=== PATIENT | male | born 1975 | race Caucasian/White ===

== ENCOUNTER 2018-04-19 08:17 | Emergency (ER) | payer SELFPAY ==
[2018-04-19 08:34] VITALS: BP 125/76; PULSE 84; TEMP 98.2; BMI 38.9
[2018-04-19] MEDS ORDERED: guaiFENesin/CODEINE 10 ML UNIT-DOSE CUPS PO ONE (09:01)
--- NOTE | 2018-04-19 09:01 | PDOC ---
History of Present Illness - General Chief Complaint: Respiratory Stated Complaint: COUGH, FEVER Time Seen by Provider: 04/19/18 08:55 History Source: Patient Exam Limitations: No Limitations - History of Present Illness Initial Comments: CHIEF COMPLAINT: 43 y/o afebrile male with PMH CVA (november 2017), HTN c/o cough and fever x 2 days. HISTORY OF PRESENT ILLNESS: The patient states the fever was 102 at home. He has been taking tylenol. He also has some nasal congestion. He denies earache , sore throat, n/v/d, CP, abd pain and all other symptoms. Patient is a non smoker Vital signs on arrival are within normal limits. REVIEW OF SYSTEMS: GENERAL/CONSTITUTIONAL: +fever. No weakness. No weight change. HEAD, EYES, EARS, NOSE AND THROAT: No change in vision. No ear pain or discharge. No sore throat. CARDIOVASCULAR: No chest pain or shortness of breath. RESPIRATORY: +cough. No wheezing or hemoptysis. GASTROINTESTINAL: No abd pain, nausea, vomiting, diarrhea. GENITOURINARY: No dysuria, frequency, or change in urination. MUSCULOSKELETAL: No joint or muscle swelling or pain. No neck or back pain. SKIN: No rash or easy bruising. NEUROLOGIC: No headache, vertigo, loss of consciousness, or loss of sensation. PHYSICAL EXAM: GENERAL: The patient is awake, alert, and fully oriented, in no acute distress. He has a persistent dry cough. HEAD: Normal with no signs of trauma. ENT: Pupils equal, round and reactive to light, extraocular movements intact, sclera anicteric, conjunctiva clear. Neck supple. LUNGS: Clear to auscultation bilaterally. Normal excursion. No respiratory distress or use of accessory muscles. CV: RRR, S1/S2, no MRG. Cap refill < 2 sec. ABDOMEN: Soft, non-distended, non-tender even to deep palpation, no hepatomegaly or splenomegaly, no masses. EXTREMITIES: Normal range of motion, no edema. NEUROLOGICAL: Normal speech, normal gait. CN II-XII grossly intact. SKIN: Warm, dry, normal turgor, no rashes or lesions noted. Past History - Past Medical History Allergies/Adverse Reactions: Allergies Allergy/AdvReac Type Severity Reaction Status Date / Time No Known Allergies Allergy Verified 04/19/18 08:30 Home Medications: Ambulatory Orders Azithromycin [Zithromax 250mg Tablets -] 250 mg PO UTDICT #6 tab 04/19/18 Guaifenesin AC [Robitussin AC] 5 ml PO TID #100 ml MDD 20 04/19/18 CVA: Yes COPD: No HTN: Yes - Immunization History Immunization Up to Date: Yes - Suicide/Smoking/Psychosocial Hx Smoking History: Never smoked *Physical Exam - Vital Signs Last Vital Signs Temp Pulse Resp BP Pulse Ox 98.2 F 84 18 125/76 97 04/19/18 08:31 04/19/18 08:31 04/19/18 08:31 04/19/18 08:31 04/19/18 08:31 Medical Decision Making - Medical Decision Making A/P: 43 y/o male with fever and cough x 2 days. O2 sat 97%. Will give robitussin AC and send for chest xray to r/o PNA. Chest xray IMPRESSION: No active pulmonary disease. Will treat for bronchitis with rx for zpack and robitussin AC. Instructed the patient to be careful with the robitussin as it causes drowsiness. Patient instructed to f/u with his doctor and return to the ER with any worsening or concerning symptoms The patient verbalizes understanding of all instructions, has no further questions and is awaiting discharge. *DC/Admit/Observation/Transfer Diagnosis at time of Disposition: Cough, Bronchitis - Discharge Dispostion Disposition: HOME Condition at time of disposition: Fair - Referrals - Patient Instructions Printed Discharge Instructions: DI for Acute Bronchitis Additional Instructions: Discharge Instructions: -You have bronchitis -2 prescriptions have been sent to your pharmacy; the cough medicine may cause drowsiness -Drink plenty of fluids -Follow up with your doctor within 1 week -Return to the ER with any worsening or concerning symptoms - Post Discharge Activity Forms/Work/School Notes: Back to Work
[2018-04-19] MEDS ORDERED: guaiFENesin/CODEINE 5 ML UNIT-DOSE CUPS PO ONE (09:27)
== END 2018-04-19 10:09 | disposition home or self-care (01) ==
LOC: JERFT 08:17
DX: R09.81 Nasal congestion (principal); J40 Bronchitis, not specified as acute or chronic; R05 Cough; I10 Essential (primary) hypertension; Z86.73 Personal history of transient ischemic attack (TIA), and cerebral infarction without residual deficits
CPT/HCPCS: 71046-TC-FY; 99281-25

== ENCOUNTER 2018-10-02 11:55 | Emergency (ER) | payer BC, OTHER ==
[2018-10-02 11:59] VITALS: BP 105/62; PULSE 95; TEMP 97.9; BMI 39.5
--- NOTE | 2018-10-02 12:51 | PDOC ---
History of Present Illness - General Chief Complaint: Cold Symptoms Stated Complaint: SHORTNESS OF BREATH Time Seen by Provider: 10/02/18 12:38 - History of Present Illness Initial Comments: 10/02/18 12:49 43-year-old male presents for evaluation of cough and facial and nasal congestion 3 weeks past medical history significant for hypertension he has no systemic symptoms. Past History - Past Medical History Allergies/Adverse Reactions: Allergies Allergy/AdvReac Type Severity Reaction Status Date / Time No Known Allergies Allergy Verified 10/02/18 11:59 Home Medications: Ambulatory Orders Azithromycin [Zithromax 250mg Tablets -] 250 mg PO UTDICT #6 tab 04/19/18 Guaifenesin AC [Robitussin AC] 5 ml PO TID #100 ml MDD 20 04/19/18 Amox-Tr/K Cl [Augmentin - 875Mg Tablet] 1 tab PO BID #20 tablet 10/02/18 Budesonide [Rhinocort Allergy] 1 spray NS ONCE #1 spray.pump 10/02/18 CVA: Yes COPD: No HTN: Yes - Immunization History Immunization Up to Date: Yes - Suicide/Smoking/Psychosocial Hx Smoking History: Never smoked Information on smoking cessation initiated: No Hx Alcohol Use: No Drug/Substance Use Hx: No Substance Use Type: None Review of Systems - Review of Systems Constitutional: Yes: Malaise. No: Chills, Diaphoresis, Fever, Night Sweats HEENTM: Yes: Nose Congestion Respiratory: Yes: Cough *Physical Exam - Vital Signs Last Vital Signs Temp Pulse Resp BP Pulse Ox 97.9 F 95 H 18 105/62 98 10/02/18 11:58 10/02/18 11:58 10/02/18 11:58 10/02/18 11:58 10/02/18 11:58 - Physical Exam Comments: HEAD: NC/AT EYES: Conjuntiva clear Ears: Canals and TM's normal NOSE: No d/c, turbinates injected THROAT: Moist mucous membrances, oral pharanx clear, uvula midline NECK: Supple without adenopathy CARDIAC: S1 S2 LUNGS: CTA Full and Equal breath sounds ABDOMEN: Soft NT ND MS: Full ROM in all joints without edema NEUROLOGIC: No gross sensory or motor deficits, NVID SKIN: Normal color and temperature no lesions or rashes 10/02/18 12:49 *DC/Admit/Observation/Transfer Diagnosis at time of Disposition: Sinusitis - Discharge Dispostion Disposition: HOME - Prescriptions Prescriptions: Amox-Tr/K Cl [Augmentin - 875Mg Tablet] 1 tab PO BID #20 tablet Budesonide [Rhinocort Allergy] 1 spray NS ONCE #1 spray.pump - Referrals Referrals: Baron Basurto MD [Staff Physician] - - Patient Instructions Printed Discharge Instructions: Sinusitis, DI for Sinusitis Additional Instructions: Return to the emergency room should symptoms worsen or go unresolved. Please take the antibiotics as directed and finish the entire course. Using a nasal spray which will help her symptoms as well. Follow-up with your nose and throat doctor in 2-3 days for further evaluation and treatment options. - Post Discharge Activity
== END 2018-10-02 12:57 | disposition home or self-care (01) ==
LOC: JERFT 11:55
DX: J32.9 Chronic sinusitis, unspecified (principal); I10 Essential (primary) hypertension
CPT/HCPCS: 99281-25

== ENCOUNTER 2018-11-18 00:29 | Emergency (ER) | payer BC, OTHER ==
[2018-11-18 00:53] VITALS: BP 137/94; PULSE 95; TEMP 97.5; BMI 33.9
[2018-11-18] MEDS ORDERED: DEXAMETHASONE SOD PHOSPHATE 10 MG/1 ML VIAL IM ONE (01:50)
[2018-11-18] MEDS ORDERED: LORATADINE 10 MG TABLET PO ONE (01:50)
[2018-11-18] MEDS ORDERED: ALBUTEROL SO4 2.5/IPRATROPIUM 0.5 INH SOL 3 ML VIAL.NEB. NEB PRN (01:50)
--- NOTE | 2018-11-18 01:55 | PDOC ---
History of Present Illness - General Chief Complaint: Cold Symptoms Stated Complaint: COLD/CONGESTION History Source: Patient Exam Limitations: No Limitations - History of Present Illness Initial Comments: 11/18/18 01:55 Patient is a 43 year old male with h/o HTN on lisinopril c/o cough x 4 days now having some wheezing, and tightness in his chesht x 2 days. Initally has a sorethorat which is now better Cough is nonproductive and has used tylenol, and his son's albuterol nebs without relief. (+) nasal congestion, runny nose. No fever, no chills. Has had similar episodes in the past where he has to come to the ED for treatment. No h/o asthma. PMD: Nicko PMHX: as above PSOCHX: neg cig, neg drug, neg etoh ALL: NKDA GENERAL/CONSTITUTIONAL: [No fever or chills. No weakness. No weight change.] HEAD, EYES, EARS, NOSE AND THROAT: [No change in vision. No ear pain or discharge. No sore throat.] CARDIOVASCULAR: [No chest pain or shortness of breath.] RESPIRATORY: (+) cough, wheezing, (-) hemoptysis.] GASTROINTESTINAL: [No nausea, vomiting, diarrhea or constipation. No rectal bleeding.] GENITOURINARY: [No dysuria, frequency, or change in urination.] MUSCULOSKELETAL: [No joint or muscle swelling or pain. No neck or back pain.] SKIN AND BREASTS: [No rash or easy bruising.] NEUROLOGIC: [No headache, vertigo, loss of consciousness, or loss of sensation.] PSYCHIATRIC: [No depression or anxiety.] ENDOCRINE: [No increased thirst. No abnormal weight change.] HEMATOLOGIC/LYMPHATIC: [No anemia, easy bleeding, or history of blood clots.] ALLERGIC/IMMUNOLOGIC: [No hives or skin allergy. No latex allergy.] GENERAL: [The patient is awake, alert, and fully oriented, in no acute distress. ] HEAD: [Normal with no signs of trauma.] EYES: [Pupils equal, round and reactive to light, extraocular movements intact, sclera anicteric, conjunctiva clear.] ENT: [Ears normal, nares patent, oropharynx clear without exudates. Moist mucous membranes.] NECK: [Normal range of motion, supple without lymphadenopathy, JVD, or masses.] LUNGS: [Breath sounds equal, clear to auscultation bilaterally. mild wheezes, and no crackles.] HEART: [Regular rate and rhythm, normal S1 and S2 without murmur, rub.] ABDOMEN: [Soft, nontender, normoactive bowel sounds. No guarding, no rebound. No masses.] EXTREMITIES: [Normal range of motion, no edema. No clubbing or cyanosis. No cords, erythema, or tenderness.] NEUROLOGICAL: [Cranial nerves II through XII grossly intact. Normal speech, normal gait.] PSYCH: [Normal mood, normal affect.] SKIN: [Warm, Dry, normal turgor, no rashes or lesions noted.] Past History - Past Medical History Allergies/Adverse Reactions: Allergies Allergy/AdvReac Type Severity Reaction Status Date / Time No Known Allergies Allergy Verified 11/18/18 00:52 Home Medications: Ambulatory Orders Azithromycin [Zithromax 250mg Tablets -] 250 mg PO UTDICT #6 tab 04/19/18 Guaifenesin AC [Robitussin AC] 5 ml PO TID #100 ml MDD 20 04/19/18 Amox-Tr/K Cl [Augmentin - 875Mg Tablet] 1 tab PO BID #20 tablet 10/02/18 Budesonide [Rhinocort Allergy] 1 spray NS ONCE #1 spray.pump 10/02/18 CVA: Yes COPD: No HTN: Yes - Immunization History Immunization Up to Date: Yes - Suicide/Smoking/Psychosocial Hx Smoking History: Never smoked Have you smoked in the past 12 months: No Information on smoking cessation initiated: No Hx Alcohol Use: No Drug/Substance Use Hx: No Substance Use Type: None *Physical Exam - Vital Signs Last Vital Signs Temp Pulse Resp BP Pulse Ox 97.5 F L 95 H 18 137/94 97 11/18/18 00:50 11/18/18 00:50 11/18/18 00:50 11/18/18 00:50 11/18/18 00:50 Moderate Sedation - Procedure Monitoring Vital Signs: Procedure Monitoring Vital Signs Temperature 97.5 F L 11/18/18 00:50 Pulse Rate 95 H 11/18/18 00:50 Respiratory Rate 18 11/18/18 00:50 Blood Pressure 137/94 11/18/18 00:50 O2 Sat by Pulse Oximetry (%) 97 11/18/18 00:50 Medical Decision Making - Medical Decision Making 11/18/18 01:55 Patient is a 43 year old male with h/o HTN on lisinopril c/o cough x 4 days now having some wheezing, and tightness in his chesht x 2 days. Initally has a sorethorat which is now better Cough is nonproductive and has used tylenol, and his son's albuterol nebs without relief. (+) nasal congestion, runny nose. No fever, no chills consistent with URI/bronchitis. nebs, decadron, cxr r/o pneumonia cxr neg I discussed the physical exam findings, ancillary test results and final diagnoses with the patient. I answered all of the patient's questions. The patient was satisfied with the care received and felt comfortable with the discharge plan and treatment plan. The Patient agrees to follow up with the primary care physician within 24-72 hours. *DC/Admit/Observation/Transfer Diagnosis at time of Disposition: Bronchitis - Discharge Dispostion Disposition: HOME Condition at time of disposition: Stable - Referrals - Patient Instructions Printed Discharge Instructions: DI for Acute Bronchitis Additional Instructions: Your Discharge Instructions: You must call primary care physician within 24 hours to arrange follow-up. Return to the Emergency Department with any new, persistent or worsening symptoms, for fever, chills, SOB, dizziness or any other concerning changes that may occur. - Post Discharge Activity
[2018-11-18] MEDS ORDERED: ALBUTEROL SO4 2.5/IPRATROPIUM 0.5 INH SOL 3 ML VIAL.NEB. NEB ONE (02:01)
[2018-11-18] MEDS ORDERED: LORATADINE 10 MG TABLET ONE (02:01)
[2018-11-18] MEDS ORDERED: DEXAMETHASONE SOD PHOSPHATE 4 MG/1 ML VIAL ONE (02:02)
== END 2018-11-18 03:08 | disposition home or self-care (01) ==
LOC: JER 00:29
PROC: 3E0F7GC Introduction of Other Therapeutic Substance into Respiratory Tract, Via Natural or Artificial Opening (ICD-10-PCS; principal; 2018-11-18)
PROC: 3E0233Z Introduction of Anti-inflammatory into Muscle, Percutaneous Approach (ICD-10-PCS; 2018-11-18)
DX: J40 Bronchitis, not specified as acute or chronic (principal); I10 Essential (primary) hypertension
CPT/HCPCS: 71046-TC-FY; 99281-25; J1100

== ENCOUNTER 2019-10-02 08:11 | Emergency (ER) | payer BC, OTHER ==
[2019-10-02 08:18] VITALS: TEMP 97.4; BMI 40.4
--- NOTE | 2019-10-02 09:17 | PDOC ---
History of Present Illness - General Chief Complaint: Headache Stated Complaint: HIGH BLOOD PRESSURE Time Seen by Provider: 10/02/19 08:47 - History of Present Illness Initial Comments: 10/02/19 09:32 Pt is a 44 y/o M with a significant past medical history of Stroke(~1 year ago [facility]), HTN who presents to our emergency Department due to headache. Pt endorses that he developed a headache a few days ago. Pt describes headache as 2/10 in pain severity, intermittent, and achy in nature. Cannot endorse any precipitating factors. Pt has not tried any remedies. Furthermore, pt endorses he experienced an episode of palpations yesterday evening. Endorses this is the first time he has experienced this. Additionally, pt states he has been experiencing a burning sensation on his right eye for 1 day duration. States he wears contacts but denies any trauma. PMH as above SocialHx- Denies Alcohol or Tobacco use SurgHx- Left shoulder and Wrist surgery [place] NKDA Past History - Past Medical History Allergies/Adverse Reactions: Allergies Allergy/AdvReac Type Severity Reaction Status Date / Time No Known Allergies Allergy Verified 10/02/19 08:18 Home Medications: Ambulatory Orders Budesonide [Rhinocort Allergy] 1 spray NS ONCE #1 spray.pump 10/02/18 Albuterol 0.083% Nebulizer Arianna [Ventolin 0.083% Nebulizer Soln -] 1 neb NEB Q4H #24 vial 11/18/18 Aspirin Coated [Ecotrin -] 81 mg PO DAILY 10/02/19 Lisinopril/Hydrochlorothiazide [Lisinopril-Hctz 20-12.5 mg Tab] 1 each PO DAILY 10/02/19 Montelukast Na [Singulair -] 10 mg PO HS 10/02/19 Tobramycin 0.3% Ophth Soln [Tobrex Ophthalmic Solution -] 1 drop OD Q4H #1 drops 10/02/19 Asthma: Yes CVA: Yes COPD: No HTN: Yes - Immunization History Immunization Up to Date: Yes - Psycho Social/Smoking Cessation Hx Smoking History: Never smoked Have you smoked in the past 12 months: No Hx Alcohol Use: No Drug/Substance Use Hx: No Substance Use Type: None Review of Systems - Review of Systems Able to Perform ROS?: Yes Is the patient limited Sami proficient: No Constitutional: No: Fever HEENTM: Yes: Blurred Vision, Tearing. No: Eye Pain Respiratory: No: Cough, Shortness of Breath Cardiac (ROS): Yes: Palpitations. No: Chest Pain ABD/GI: No: Constipated, Diarrhea : No: Dysuria, Hematuria Neurological: Yes: Headache. No: Numbness, Paresthesia, Ataxia *Physical Exam - Vital Signs Last Vital Signs Temp Pulse Resp BP Pulse Ox 97.4 F L 68 16 149/82 98 10/02/19 08:14 10/02/19 08:14 10/02/19 08:14 10/02/19 08:14 10/02/19 08:14 - Physical Exam General Appearance: Yes: Appropriately Dressed HEENT: positive: EOMI, Other (Right conjunctiva erythematous. Tearing from right eye. ) Neck: positive: Supple Respiratory/Chest: positive: Lungs Clear, Normal Breath Sounds Cardiovascular: positive: Regular Rate, S1, S2 Gastrointestinal/Abdominal: positive: Soft. negative: Guarding, Rebound Extremity: positive: Normal Inspection, Normal Range of Motion Neurologic: positive: breakdown man II-XII NML intact, Fully Oriented, Alert, Normal Mood/ Affect, Motor Strength 5/5 Heart Score/ECG Review - ECG Impressions Comment:: 10/02/19 09:46 nl sinus rhythm, nl intervals. QTc 430. 71 BPM. ED Treatment Course - LABORATORY CBC & Chemistry Diagram: 10/02/19 09:45 10/02/19 09:45 Medical Decision Making - Medical Decision Making DDX includes but not limited to Subdural bleed, subarachnoid hemorrhage, URI Will order CBC w/ diff, CMP, Cardiac Profile, Head CT in light of stroke history. Will also perform Fluorescein test (Lilia) to assess for any corneal abrasion or trauma in light of erythematous conjunctiva. -Pt given 1000 mg Tylenol for analgesia. -Fluorescein test performed. No evidence of corneal perforation. -CT Head no acute intracranial pathology. -Pt d/c'ed home with ophtho referral and informed to follow up with pmd this week. Pt prescribed tobramycin eyedrops. Discharge - Discharge Information Problems reviewed: Yes Clinical Impression/Diagnosis: Headache, Acute conjunctivitis, unspecified Condition: Improved Disposition: HOME - Admission No - Additional Discharge Information Prescriptions: Tobramycin 0.3% Ophth Soln [Tobrex Ophthalmic Solution -] 1 drop OD Q4H #1 drops - Follow up/Referral Referrals: Armando Clifford MD [Primary Care Provider] - Saud Nixon MD [Staff Physician] - - Patient Discharge Instructions Patient Printed Discharge Instructions: How to Instill Eye Drops, Conjunctivitis, DI for Headache Additional Instructions: You were seen in the Emergency Department due to headache and irritation of your right eye. Imagine of your Head did not show any acute problems. You will be sent home on an eye drop medication. Please take this as prescribed. Please do not wear your contact lens. please continue to take all of your medications as prescribed including your blood pressure medications. Please follow up with the eye doctor today or tomorrow- Dr Saud Nixon. A referral has been provided for you. Please return to the emergency Department immediately if you begin to experience worsening headache, shortness of breath, chest pain, worsening eye problems or any other abnormal symptoms. - Post Discharge Activity
[2019-10-02] MEDS ORDERED: ACETAMINOPHEN 500 MG TABLET (FP) PO ONE (09:18)
[2019-10-02] MEDS ORDERED: ACETAMINOPHEN INJECTION 100 ML IVPB ONE (09:36)
[2019-10-02] MEDS ORDERED: FLUORESCEIN NA 1 EA STRIP ONE ×2 (09:39→10:11)
--- NOTE | 2019-10-02 09:41 | PDOC ---
Attending Attestation - Resident Resident Name: JuanChilango - ED Attending Attestation I have performed the following: I have examined & evaluated the patient, The case was reviewed & discussed with the resident, I agree w/resident's findings & plan, Exceptions are as noted - HPI HPI: 10/02/19 09:37 Mr. Santos is a 44-year-old male with a history of hypertension who presents emergency department with a complaint of headaches x several days Patient has noticed occipital headaches for the past 3 to 4 days. Headaches are intermittent. Currently headache is mild, throbbing, no radiation to the neck. Of note patient also has irritation of the right eye. He states this began yesterday, and when he began it was mild. Over the day and evening despite removal of his contacts, the pain has worsened. He feels as though something is in the undersurface of the lid Reports that his right eye is tearing No visual loss, no photophobia Patient denies weakness, numbness. He also notes palpitations, denies chest pain or pressure Patient presented this morning to the emergency department because he took his blood pressure and noted it was 145/95. Last year he reportedly had a stroke and that was related with elevated blood pressure. Patient was very concerned that his blood pressure was elevated today. 10/02/19 09:39 - Physicial Exam PE: 10/02/19 09:39 GENERAL: The patient is in no acute distress. EYES: Right eye injection with limbal sparing, tearing, Extraocular movements are intact Pupils are round and reactive ENT: Ears normal, nares patent, oropharynx clear without exudates. Moist mucous membranes. NECK: Normal range of motion, supple, no nuchal rigidity (+) LAD LUNGS: Breath sounds equal, clear to auscultation bilaterally. No wheezes, and no crackles. HEART:Regular rate and rhythm, normal S1 and S2 without murmur, rub or gallop. ABDOMEN: Soft, nontender, normoactive bowel sounds. EXTREMITIES: Normal range of motion, no edema. NEUROLOGICAL: Cranial nerves II through XII grossly intact. Normal speech. No focal neurological deficits. SKIN: Warm, Dry, normal turgor, no rashes or lesions noted. 10/02/19 09:40 - Medical Decision Making 10/02/19 09:41 44-year-old male presenting to the emergency department with a complaint of intermittent occipital headaches, elevated blood pressure and right eye irritation Right eyelid everted, no foreign body seen although there was a small lesion noted on the lid Right eye appears to be injected secondary to trauma to the cornea We will do fluorescein staining Patient will need antibiotic drops Avoid contact use Occipital headaches Likely related to the fact that patient has worked to 16-hour shifts, has not slept Given history of stroke, low threshold to do CT scanning Patient blood pressure 149/82 We will treat patient's headache We will treat patient's eye pain We will repeat patient's blood pressure We will do labs and EKG Patient will need to follow-up with PMD EKG: Normal sinus rhythm, rate of 71 bpm, axis is normal, intervals are normal, no ST elevation, single T wave inversion in lead III No old EKG for comparison 10/02/19 10:13 Patient refused IV 10/02/19 10:13 Laboratory Tests 10/02/19 09:45 WBC 7.4 Hgb 15.2 Hct 45.7 Plt Count 234 10/02/19 11:48 Laboratory Tests 10/02/19 09:45 Creatine Kinase 227 Creatine Kinase Index 0.8 CK-MB (CK-2) 2.0 Troponin I < 0.02 Patient feels better on examination. We will discharge home with tobramycin eyedrops. We will asked patient to follow-up with ophthalmology. Last patient to continue his antihypertensive medications. Follow with primary care visit I discussed the physical exam findings, ancillary test results and final diagnoses with the patient. I answered all of the patient's questions. The patient was satisfied with the care received and felt comfortable with the discharge plan and treatment plan. The patient will call their primary care physician within 24 hours to arrange follow-up and will return to the Emergency Department with any new, persistent or worsening symptoms.
[2019-10-02] MEDS ORDERED: TETRACAINE 0.5% HCL 0.6ML DROPPER.BOTTLE OD ONE (09:43)
[2019-10-02] MEDS ORDERED: TETRACAINE 0.5% OPHTH SOLN 2 ML BOTTLE ONE (09:53)
[2019-10-02 10:03] LABS: BASO % 0.8 % (0-2.0); EOS % 1.8 % (0-4.5); HEMATOCRIT 45.7 % (35.4-49); HEMOGLOBIN 15.2 GM/dL (11.7-16.9); LYMPH % 21.4 % (8-40); MCH 28.7 pg (25.7-33.7); MCHC 33.2 g/dl (32.0-35.9); MEAN CELL VOLUME 86.5 fl (80-96); MEAN PLT VOLUME 8.6 fl (7.5-11.1); PLATELET COUNT 234 K/MM3 (134-434); RBC 5.28 M/mm3 (4.00-5.60); RDW 13.5 % (11.9-15.9); WHITE BLOOD COUNT 7.4 K/mm3 (4.0-10.0)
[2019-10-02 10:37] LABS: ALBUMIN 3.7 g/dl (3.4-5.0); ALK PHOS 83 U/L (45-117); ANION GAP 7 MMOL/L (8-16); BILIRUBIN,TOTAL 0.4 mg/dL (0.2-1); BLOOD UREA NITROGEN 11.9 mg/dL (7-18); CHLORIDE 106 mmol/L (98-107); CO2 26 mmol/L (21-32); CREATININE 0.9 mg/dL (0.55-1.3); GLUCOSE,RANDOM 97 mg/dL (74-106); POTASSIUM 3.6 mmol/L (3.5-5.1); SGOT/AST 20 U/L (15-37); SGPT/ALT 43 U/L (13-61); SODIUM 139 mmol/L (136-145); TOT PROT 6.8 g/dl (6.4-8.2)
[2019-10-02] MEDS ORDERED: ACETAMINOPHEN 325 MG TABLET (FP) PO ONE (10:44)
[2019-10-02] MEDS ORDERED: ACETAMINOPHEN 325 MG TABLET (FP) ONE (10:49)
--- NOTE | 2019-10-02 11:47 | EKG ---
Test Reason : Blood Pressure : / mmHG Vent. Rate : 071 BPM Atrial Rate : 071 BPM P-R Int : 162 ms QRS Dur : 098 ms QT Int : 396 ms P-R-T Axes : 054 002 021 degrees QTc Int : 430 ms NORMAL SINUS RHYTHM MINIMAL VOLTAGE CRITERIA FOR LVH, MAY BE NORMAL VARIANT BORDERLINE ECG NO PREVIOUS ECGS AVAILABLE Confirmed by MANISHA STEPHENSON MD ([id number]) on 10/02/2019 11:47:27 AM Referred By: Confirmed By:MANISHA STEPHENSON MD
[2019-10-02 12:25] VITALS: BP 152/90; PULSE 69
== END 2019-10-02 12:10 | disposition home or self-care (01) ==
LOC: JER 08:11
DX: R51 Headache (principal); H10.31 Unspecified acute conjunctivitis, right eye; I10 Essential (primary) hypertension; J45.909 Unspecified asthma, uncomplicated; Z86.73 Personal history of transient ischemic attack (TIA), and cerebral infarction without residual deficits
CPT/HCPCS: 36415; 70450-TC; 80053; 82550; 82553; 84484; 85025; 93005; 93010; 99282-25

== ENCOUNTER 2019-11-11 23:36 | Emergency (ER) | payer OTHER, BC ==
[2019-11-12] VITALS: BP 134/74; PULSE 82; TEMP 98; BMI 41.5
--- NOTE | 2019-11-12 00:03 | PDOC ---
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
--- NOTE | 2019-11-12 00:13 | PDOC ---
History of Present Illness - General Chief Complaint: Injury Stated Complaint: FALL/NECK/LOWER BACK/FINGERS/INJURIES Time Seen by Provider: 11/11/19 23:49 History Source: Patient Exam Limitations: No Limitations - History of Present Illness Initial Comments: 11/12/19 00:13 44y M [employer] with PMH of CVA 1y ago, HTN presenting to ED after slipping down stairs at his workplace. Patient states there was water on the ground and he slipped down 7-10 steps. He endorses pain in the lower back and in the 1st and 3rd digits of his R hand. Denies hitting his head, LOC, neck pain , abdominal pain, chest pain, sob, n/v/d, numbness/tingling, weakness, saddle anesthesia, urinary retention/incontinence. He has been ambulatory since the fall. Past History - Past Medical History Allergies/Adverse Reactions: Allergies Allergy/AdvReac Type Severity Reaction Status Date / Time No Known Allergies Allergy Verified 11/11/19 23:59 Home Medications: Ambulatory Orders Budesonide [Rhinocort Allergy] 1 spray NS ONCE #1 spray.pump 10/02/18 Albuterol 0.083% Nebulizer Arianna [Ventolin 0.083% Nebulizer Soln -] 1 neb NEB Q4H #24 vial 11/18/18 Aspirin Coated [Ecotrin -] 81 mg PO DAILY 10/02/19 Lisinopril/Hydrochlorothiazide [Lisinopril-Hctz 20-12.5 mg Tab] 1 each PO DAILY 10/02/19 Montelukast Na [Singulair -] 10 mg PO HS 10/02/19 Tobramycin 0.3% Ophth Soln [Tobrex Ophthalmic Solution -] 1 drop OD Q4H #1 drops 10/02/19 Asthma: Yes CVA: Yes COPD: No HTN: Yes - Immunization History Immunization Up to Date: Yes - Psycho Social/Smoking Cessation Hx Smoking History: Never smoked Have you smoked in the past 12 months: No Hx Alcohol Use: No Drug/Substance Use Hx: No Substance Use Type: None Review of Systems - Review of Systems Constitutional: No: Symptoms Reported HEENTM: No: Symptoms Reported Respiratory: No: Symptoms reported Cardiac (ROS): No: Symptoms Reported ABD/GI: No: Symptoms Reported : No: Symptoms Reported Musculoskeletal: Yes: See HPI Integumentary: No: Symptoms Reported Neurological: No: Symptoms reported *Physical Exam - Vital Signs Last Vital Signs Temp Pulse Resp BP Pulse Ox 98 F 82 16 134/74 97 11/11/19 23:50 11/11/19 23:50 11/11/19 23:50 11/11/19 23:50 11/11/19 23:50 - Physical Exam General Appearance: Yes: Appropriately Dressed, Obese. No: Apparent Distress HEENT: positive: EOMI, RAFA Neck: positive: Trachea midline, Supple. negative: Decreased range of motion, Tender lateral, Tender midline Respiratory/Chest: positive: Lungs Clear, Normal Breath Sounds. negative: Chest Tender Cardiovascular: positive: Regular Rhythm, Regular Rate, S1, S2. negative: Edema , JVD, Murmur Gastrointestinal/Abdominal: positive: Normal Bowel Sounds, Soft. negative: Tender Musculoskeletal: positive: Vertebral Tenderness (thoracic down to lumbar. no stepoffs, no bruising. ). negative: CVA Tenderness Extremity: positive: Normal Capillary Refill, Pelvis Stable. 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 vitals wnl pe; midline tenderness in lumbar and thoracic spine. no cervical spine tenderness, no loc. does not require c spine imgaging at this time. will order ct of lumbar and thoracic spine. given mechanism of injury, will obtain ctap with contrast to r/o hematoma/ retroperitoneal bleed. ibuprofen for pain. cts negative for fractures. pt is refusing ctap to check for bleeding. pt was told why humberto test was ordered and what we are looking for. pt understands and states that he needs to go home because he has work in the AM. pt has capacity to make decisions, advised what may happen if we cannot diagnose a bleed. pt understands. given return precuations. pt signed AMA Discharge - Discharge Information Problems reviewed: Yes Clinical Impression/Diagnosis: Fall Qualifiers: Encounter type: initial encounter Qualified Code(s): W19.XXXA - Unspecified fall, initial encounter Back pain Qualifiers: Back pain location: low back pain Chronicity: acute Back pain laterality: midline Sciatica presence: without sciatica Qualified Code(s): M54.5 - Low back pain Condition: Stable Disposition: AGAINST MEDICAL ADVICE - Admission No - Follow up/Referral - Patient Discharge Instructions Patient Printed Discharge Instructions: DI for Low Back Pain Additional Instructions: You were seen in the emergency room today for back pain. The CT scan does not show any fractures and the xray does not show fractures. You did not want to stay for the CT scan of your abdomen to check for bleeding. You can take Advil or ibuprofen for the pain as needed. Come back to the emergency room if you have worsening pain, you pass out, have numbness or tingling in the legs or private area, are unable to urinate, blood in the urine or if any new or concerning symptom develops. Thank you - Post Discharge Activity
[2019-11-12] MEDS ORDERED: IBUPROFEN 400 MG TABLET (FP) PO ONE ×2 (00:26→00:33)
[2019-11-12 01:47] LABS: BASO % 0.7 % (0-2.0); EOS % 2.4 % (0-4.5); HEMATOCRIT 44.2 % (35.4-49); HEMOGLOBIN 14.9 GM/dL (11.7-16.9); LYMPH % 24.6 % (8-40); MCH 28.9 pg (25.7-33.7); MCHC 33.6 g/dl (32.0-35.9); MEAN CELL VOLUME 86.1 fl (80-96); MEAN PLT VOLUME 8.7 fl (7.5-11.1); MONO % 7.3 % (3.8-10.2); PLATELET COUNT 260 K/MM3 (134-434); RBC 5.13 M/mm3 (4.00-5.60); RDW 13.4 % (11.9-15.9); WHITE BLOOD COUNT 9.7 K/mm3 (4.0-10.0)
[2019-11-12 02:24] LABS: ALBUMIN 3.9 g/dl (3.4-5.0); BILIRUBIN,TOTAL 0.5 mg/dL (0.2-1); BLOOD UREA NITROGEN 14.1 mg/dL (7-18); CALCIUM 9.2 mg/dL (8.5-10.1); POTASSIUM 4.6 mmol/L (3.5-5.1); TOT PROT 7.2 g/dl (6.4-8.2)
== END 2019-11-12 02:55 | disposition left against medical advice (07) ==
LOC: JER 23:36
CPT/HCPCS: 36415; 72128-TC; 72131-TC; 73130-TC-LT-FY; 73130-TC-RT-FY; 80053; 85025; 99282-25

== ENCOUNTER 2025-05-08 21:54 | Observation (INO) | payer BC, OTHER ==
[2025-05-08 22:10] VITALS: RESP 18
[2025-05-09 01:33] LABS: ABSOLUTE IMMATURE GRANULOCYTES 0.03 x10^3/uL (0.0-0.031); BASOPHILS # 0.03 x10^3/uL (0.01-0.08); EOSINOPHILS # 0.11 x10^3/uL (0.04-0.54); HEMATOCRIT 48.3 % (40.1-51.0); HEMOGLOBIN 15.7 g/dL (13.7-17.5); MCHC 32.5 g/dl (32.3-36.5); MEAN CELL VOLUME 87.8 fl (79.0-92.2); MEAN PLT VOLUME 10.6 fl (9.4-12.4); MONOCYTE # 0.75 x10^3/uL (0.30-0.82); MONOCYTE % 6.6 % (5.3-12.2); PLATELET COUNT 254 x10^3/uL (163-337); RDW 12.8 % (12.1-15.9)
[2025-05-09 01:52] LABS: POTASSIUM 3.4 mmol/L (3.5-5.1)
[2025-05-09 01:54] LABS: CALCIUM 9.4 mg/dL (8.5-10.1)
[2025-05-09 01:55] LABS: ALBUMIN 3.8 g/dl (3.4-5.0); BLOOD UREA NITROGEN 11.2 mg/dL (7-18)
[2025-05-09 01:59] LABS: BILIRUBIN,TOTAL 0.7 mg/dL (0.2-1); TOT PROT 6.8 g/dl (6.4-8.2)
[2025-05-09] MEDS: SODIUM CHLORIDE 1,000 ML IV STA (03:27)
[2025-05-09] MEDS ORDERED: PIPERACILLIN/TAZOBACTAM 3.375 GM VIAL IVPB ONE (03:44)
[2025-05-09] MEDS ORDERED: ACETAMINOPHEN INJECTION 100 ML ONE (03:45)
[2025-05-09] MEDS: ACETAMINOPHEN 1000 MG/100 ML BAG IVPB ONE (03:53)
[2025-05-09] MEDS: PIPERACILLIN/TAZOB 3.375 GM 3.375 GM in DEXTROSE 5%-WATER - 50 ML IVPB ONE (03:53)
[2025-05-09 04:58] LABS: INR 1.07 (0.83-1.09); PROTHROMBIN TIME (PATIENT) 11.8 SEC (9.7-13.0)
[2025-05-09] MEDS: DEXTROSE 5%-0.45% SALINE 1,000 ML IV SCH (05:49)
[2025-05-09 06:28] VITALS: BMI 35.8
[2025-05-09 07:13] LABS: ABSOLUTE IMMATURE GRANULOCYTES 0.02 x10^3/uL (0.0-0.031); BASOPHILS # 0.02 x10^3/uL (0.01-0.08); EOSINOPHIL % 0.8 % (0.8-7.0); EOSINOPHILS # 0.08 x10^3/uL (0.04-0.54); HEMATOCRIT 46.3 % (40.1-51.0); HEMOGLOBIN 15.2 g/dL (13.7-17.5); MCHC 32.8 g/dl (32.3-36.5); MEAN PLT VOLUME 10.6 fl (9.4-12.4); MONOCYTE # 0.77 x10^3/uL (0.30-0.82); MONOCYTE % 7.7 % (5.3-12.2); PLATELET COUNT 239 x10^3/uL (163-337); RDW 12.6 % (12.1-15.9)
[2025-05-09 07:52] LABS: CALCIUM 8.6 mg/dl (8.5-10.1); POTASSIUM 3.9 mmol/L (3.5-5.1)
[2025-05-09] MEDS ORDERED: ACETAMINOPHEN 1000 MG/100 ML BAG IVPB PRN ×2 (10:00)
[2025-05-09 10:03] LABS: ERYTHROCYTE SEDIMENTATION RATE 11 mm/hr (0-20)
[2025-05-09] MEDS: DEXTROSE 5%-NORMAL SALINE 1,000 ML IV SCH (11:51)
[2025-05-09] MEDS: PIPERACILLIN/TAZOB 3.375 GM 3.375 GM in DEXTROSE 5%-WATER - 50 ML IVPB SCH (11:52)
[2025-05-10] MEDS: PIPERACILLIN/TAZOB 3.375 GM 3.375 GM in DEXTROSE 5%-WATER - 50 ML IVPB SCH ×2 (01:51→07:23)
[2025-05-10 08:08] LABS: ABSOLUTE IMMATURE GRANULOCYTES 0.01 x10^3/uL (0.0-0.031); BASOPHILS # 0.02 x10^3/uL (0.01-0.08); EOSINOPHIL % 3.4 % (0.8-7.0); EOSINOPHILS # 0.23 x10^3/uL (0.04-0.54); HEMATOCRIT 47.2 % (40.1-51.0); HEMOGLOBIN 15.3 g/dL (13.7-17.5); MCHC 32.4 g/dl (32.3-36.5); MEAN CELL VOLUME 87.7 fl (79.0-92.2); MONOCYTE # 0.59 x10^3/uL (0.30-0.82); MONOCYTE % 8.6 % (5.3-12.2); PLATELET COUNT 243 x10^3/uL (163-337); RDW 12.5 % (12.1-15.9)
[2025-05-10 09:07] LABS: ALBUMIN 4.2 g/dl (3.4-5.0); BILIRUBIN,TOTAL 0.8 mg/dl (0.2-1); CALCIUM 8.9 mg/dl (8.5-10.1); CREATININE 0.9 mg/dl (0.6-1.3); MAGNESIUM 2.1 mg/dL (1.8-2.4); PHOSPHOROUS 3.2 (2.5-4.9); POTASSIUM 4.1 mmol/L (3.5-5.1); TOT PROT 6.4 g/dl (6.4-8.2)
[2025-05-10 09:26] LABS: ERYTHROCYTE SEDIMENTATION RATE 15 mm/hr (0-20)
[2025-05-10 10:16] VITALS: BP 116/80; PULSE 71; TEMP 97.8
== END 2025-05-10 11:20 | disposition home or self-care (01) ==
LOC: FER 21:54 → FM/S 05-09 05:26
PROVIDERS: ADMIT Hospitalist; ATTEND Internal Medicine
PROC: 3E03329 Introduction of Other Anti-infective into Peripheral Vein, Percutaneous Approach (ICD-10-PCS; principal; 2025-05-09)
PROC: 3E033NZ Introduction of Analgesics, Hypnotics, Sedatives into Peripheral Vein, Percutaneous Approach (ICD-10-PCS; 2025-05-09)
PROC: 3E0337Z Introduction of Electrolytic and Water Balance Substance into Peripheral Vein, Percutaneous Approach (ICD-10-PCS; 2025-05-09)
DX: K57.92 Diverticulitis of intestine, part unspecified, without perforation or abscess without bleeding (principal); I10 Essential (primary) hypertension; E66.9 Obesity, unspecified
CPT/HCPCS: 36415; 74177-TC; 80048; 80053; 81003; 83735; 84100; 85025; 85610; 85651; 85730; 86140; 86850; 86900; 86901; 99285-25; G0378; Q9967